=== PATIENT | male | born 1970 | race Caucasian/White ===

== ENCOUNTER 2016-12-19 18:32 | Emergency (ER) | payer MEDICAID ==
[~2016-12-19] VITALS: Ht 180.3 cm; Wt 69.6 kg
[2016-12-19 18:34] VITALS: BP 128/76
[2016-12-19 19:27] LABS: BLOOD UREA NITROGEN 8 mg/dL (7-18)
[2016-12-19] MEDS ORDERED: OMNIPAQUE 350 MG/ML, 100ML BOTTLE ONE (19:30)
== END 2016-12-19 21:14 | disposition home or self-care (01) ==
LOC: ED 20:13
DX: K04.7 Periapical abscess without sinus (principal)
CPT/HCPCS: 36415; 70487; 80048; 99285; Q9967